=== PATIENT | male | born 1970 | race Caucasian/White ===

== ENCOUNTER → 2019-12-29 | Outpatient (CLI) | payer BC ==
[~2019-12-29] VITALS: Ht 180 cm; Wt 90.0 kg
[~2019-12-29] MED LIST: ALBU17AE3 IH; ASPI-999 PO; ATOR80TA76 PO; AZIT500T2 PO; CATHETER FLUSH 10 ML SYR IV PRN; CIPR500T4 PO; CLOP75TA28 PO; IBUP-30 PO; NYST1000 PO
--- NOTE | 2019-12-29 20:39 | STRESS TEST ---
DATE OF SERVICE: 12/29/2019 RESTING AND POST EXERCISE TECHNETIUM-99M TETROFOSMIN SPECT CT IMAGING ORDERING PHYSICIAN: Dr. Arredondo. CLINICAL DIAGNOSES: Coronary artery disease, tobacco use. Baseline images were carried out after injection of 9.78 mCi of technetium-99m Tetrofosmin. Subsequently, exercise was carried out on a treadmill. Jerman protocol was employed. Heart rate response to exercise was normal. Blood pressure response to exercise was somewhat hypertensive. No significant arrhythmia was seen. After the patient had attained more than 85% of maximum predicted heart rate, 30.5 mCi of technetium-99m Tetrofosmin were injected and the exercise was continued for another minute. The exercise was stopped on account of fatigue. She attained 96% of maximum predicted heart rate and 11.3 METS of workload. There did not appear to be significant ST segment deviation with exercise. Review of images at rest and following stress does not indicate any significant perfusion defects consistent with myocardial ischemia or infarction. Gated images show normal global left ventricular systolic function with normal regional wall motion. Left ventricular ejection fraction is calculated to be 61%. Left ventricular end diastolic volume is 81 mL. TID is absent (0.94). CONCLUSIONS: 1. No evidence of significant myocardial ischemia or infarction on this study. 2. Normal regional wall motion. 3. Normal global left ventricular systolic function with a calculated ejection fraction of 61%. 4. Somewhat hypertensive response to exercise. Job ID: [id number] DocumentID: [id number] Dictated Date: 12/29/2019 16:11:27 Foundry Molder Date: 12/29/2019 20:39:37 Dictated By: NEAL ARREDONDO MD, MA, FACP, FACC,
== END ==
LOC: CARD 11:43
PROVIDERS: ATTEND Internal Medicine Cardiovascular Disease
DX: I25.10 Atherosclerotic heart disease of native coronary artery without angina pectoris (principal); R53.83 Other fatigue; Z72.0 Tobacco use
CPT/HCPCS: 78452; 93017

== ENCOUNTER → 2021-01-03 | Outpatient (CLI) | payer BC ==
[~2021-01-03] MED LIST changes: -CATHETER FLUSH 10 ML SYR IV PRN
[2021-01-03 13:39] VITALS: BP 106/74
== END ==
LOC: CARD 13:00
PROVIDERS: ATTEND Internal Medicine Cardiovascular Disease
DX: I25.10 Atherosclerotic heart disease of native coronary artery without angina pectoris (principal); Z95.5 Presence of coronary angioplasty implant and graft
CPT/HCPCS: 93306; 93351

== ENCOUNTER → 2022-01-02 | Outpatient (CLI) | payer BC ==
[2022-01-02 09:56] VITALS: BP 118/80
== END ==
LOC: CARD 09:00
PROVIDERS: ATTEND Internal Medicine Cardiovascular Disease
DX: I25.10 Atherosclerotic heart disease of native coronary artery without angina pectoris (principal)
CPT/HCPCS: 93306; C8930

== ENCOUNTER 2022-01-09 10:00 | Day surgery (SDC) | payer BC ==
[~2022-01-09] VITALS: Ht 182.9 cm; Wt 91.6 kg
[2022-01-09] VITALS (9 sets, daily range): BP systolic 104–126; BP diastolic 67–85
[2022-01-09 08:49] LABS: HEMATOCRIT 46 % (40-54); HEMOGLOBIN 16.4 g/dL (13.3-17.7); MEAN CORPUSCULAR HEMOGLOBIN 31 pg (25-34); MEAN CORPUSCULAR HGB CONC 35 g/dL (32-36); MEAN CORPUSCULAR VOLUME 87 fL (80-99); MEAN PLATELET VOLUME 10.6 fL (9.0-12.2); PLATELET COUNT 251 10^3/uL (130-400); WHITE BLOOD COUNT 10.4 10^3/uL (4.3-11.0)
[2022-01-09 09:02] LABS: INR 0.9 (0.8-1.4); PROTHROMBIN TIME PATIENT 12.8 SEC (12.2-14.7)
[2022-01-09 09:08] LABS: ALANINE AMINOTRANSFERASE 26 U/L (0-55); ALBUMIN 4.6 GM/DL (3.2-4.5); ALKALINE PHOSPHATASE 60 U/L (40-136); BILIRUBIN,TOTAL 0.7 MG/DL (0.1-1.0); BUN/CREATININE RATIO 13; CALCIUM 9.4 MG/DL (8.5-10.1); CARBON DIOXIDE 21 MMOL/L (21-32); CHLORIDE 108 MMOL/L (98-107); CHOLESTEROL 140 MG/DL (< 200); CREATININE SERUM 0.86 MG/DL (0.60-1.30); GFR ESTIMATED 105; GLUCOSE 160 MG/DL (70-105); HDL CHOLESTEROL 38 MG/DL (40-60); POTASSIUM 4.5 MMOL/L (3.6-5.0); SODIUM 140 MMOL/L (135-145); TOTAL PROTEIN 7.3 GM/DL (6.4-8.2); TRIGLYCERIDES 91 MG/DL (<150); VLDL CHOLESTEROL 18 MG/DL (5-40)
[~2022-01-09 10:00] MED LIST changes: +ASPI-1238 PO; +ATOR40TA70 PO; +CLOP75TA69 PO; +HEParin (CATH LAB) 2,000 ML IV ONE; +LIDOCAINE 1% INJ 20 ML VIAL ONE; +MTP25TSR PO; +NS IV 1000 ML 1,000 ML IV SCH; +NS IV 1000 ML 1,000 ML ONE
[2022-01-09] MEDS ORDERED: methylPREDNISolone 125 MG (Solu-MEDROL) VIAL ONE (10:13)
[2022-01-09] MEDS ORDERED: fentaNYL INJ 100 MCG/2 ML AMP ONE (10:13)
[2022-01-09] MEDS ORDERED: MIDAZOLAM 5 MG/5 ML (VERSED) VIAL ONE (10:13)
[2022-01-09] MEDS ORDERED: diphenhydrAMINE 50 MG/ML INJ (BENADRYL) ONE (10:13)
[2022-01-09] MEDS ORDERED: ATROPINE INJECTION 1 MG/10 ML SYR (ABBOTT) ONE (10:52)
--- NOTE | 2022-01-09 11:33 | Cardiac Procedure Note-CS/ASA ---
Pre-Procedure Note Pre-Op Procedure Note H&P Reviewed The H&P was reviewed, patient examined and no changes noted. Date H&P Reviewed: Jan 09, 2022 Time H&P Reviewed: 10:30 Conscious Sedation Pre-Proced Time 10:30 ASA Score 3 For ASA 3 and 4: Consider anesthesia and medical clearance. Also, for patients with a history of failed moderate sedation consider anesthesia. Airway Lungs Heart ASA score ASA 1: a normal healthy patient ASA 2: a patient with a mild systemic disease (mid diabetes, controlled hypertension, obesity ASA 3: a patient with a severe systemic disease that limits activity (angina, COPD, prior Myocardial infarction) ASA 4: a patient with an incapacitating disease that is a constant threat to life (CHF, renal failure) ASA 5: a moribund patient not expected to survive 24 hrs. (ruptured aneurysm) ASA 6: a declared brain- patient whose organs are being harvested. For emergent operations, add the letter E after the classification Mallampati Classification Grade 2 Sedation Plan Analgesia, Amnesia, Plan communicated to team members, Discussed options with patient/fam, Discussed risks with patient/fam The patient is an appropriate candidate to undergo the planned procedure, sedation, and anesthesia. The patient immediately re-assessed prior to indication. NEAL PONCE MD FACP FAC CCDS Jan 09, 2022 11:33
--- NOTE | 2022-01-09 11:41 | Discharge Inst-Cardiology ---
Discharge Inst-Cardiac Discharge Medications Continued Medications: Aspirin (Aspirin EC) 81 Mg Tablet.dr 81 MG PO DAILY, TAB Atorvastatin Calcium (Atorvastatin Calcium) 40 Mg Tablet 40 MG PO DAILY, TAB Clopidogrel Bisulfate (Plavix) 75 Mg Tablet 75 MG PO DAILY, TAB Metoprolol Succinate (Metoprolol Succinate) 25 Mg Tab.er.24h 25 MG PO DAILY, TAB NEAL PONCE MD [facility] Jan 09, 2022 11:41
--- NOTE | 2022-01-09 11:42 | Discharge Inst-Post CATH ---
Discharge Inst-CATH/EP Post Cardiac Cath/EP D/C Inst Follow Up/Plan F/u with Dr Arredondo in 2 weeks ACTIVITY * Go Home directly and rest. * Limit activity of the leg (or wrist if it was used) for 7 days including aerobics, swimming, jogging, bicycling, etc. * Restrict stair-climbing for 7 days if possible, if not, climb up with your no n-cath leg, then bring together on the same step. * Avoid lifting, pushing, pulling or excessive movement of the affected ext remity for 7 days. * Customary sexual activity may be resumed after 2 days-use caution not to use a position that strains or causes pain to the affected extremity. * No driving for 24 hours. * NO SMOKING. * Avoid straining for bowel movements for 7 days. * Gentle walking on level ground is allowed. * Returning to work will depend on the type of procedure and the results. Your doctor will discuss this with you. CALL YOUR DOCTOR FOR ANY OF THE FOLLOWING: *If bleeding from the puncture site occurs- Apply gentle pressure to site with clean cloth and call your doctor or EMS. * If a knot or lump forms under the skin, increases in size, or causes pain. * If bruising appears to be worsening or moving further down your leg instead of disappearing. * Temperature above 101 F. CARE OF YOUR GROIN INCISION; * Bruising or purple discoloration of the skin near the puncture site is common. * You may shower only, no bathtub bathing for 5 days. Be careful to avoid slipping as your leg may feel stiff. * If a closure device was used on your femoral artery, please see the attached guide regarding care of the device and your leg. * Leave dressing on FOR 24 hours. CARE OF YOUR WRIST INCISION; * Bruising or purple discoloration of the skin near the puncture site is common. * You may shower. * DO NOT submerge wrist. * Leave dressing on FOR 24 hours. NEAL ARREDONDO MD FACP FAC CCDS Jan 09, 2022 11:42
[2022-01-09] MEDS ORDERED: NS IV 1000 ML 1,000 ML IV SCH (11:45)
[2022-01-09] MEDS ORDERED: PATIENT MAY USE OWN MEDS, ALL PO SCH (11:45)
--- NOTE | 2022-01-09 15:03 | CARDIAC CATHETERIZATION ---
DATE OF SERVICE: 01/09/2022 CARDIAC CATHETERIZATION REPORT INDICATION FOR PROCEDURE: The patient is a 51-year-old gentleman, who is known to have coronary artery disease. He has a history of coronary stenting following an acute ST elevation myocardial infarction in July 2018. A stress echo done recently was somewhat abnormal because of three beats run of nonsustained ventricular tachycardia at peak exercise. Cardiac catheterization was carried out today after having obtained an informed consent. PROCEDURE IN DETAIL: He was brought to the cardiac catheterization during the fasting state. Right groin was prepared and draped in the usual sterile fashion. Lidocaine 1% was used for local anesthesia. Modified Seldinger technique was used to advance a 5-[place] sheath in right femoral artery, 5-[place] JL4 catheter was used for left angiography, 5-[place] JR4 catheter was used for right coronary angiography, 5-[place] pigtail catheter was used for left heart catheterization and left ventricular angiography. He tolerated the procedure well. Manual pressure was used to achieve hemostasis. HEMODYNAMICS: Left ventricular end-diastolic pressure following coronary angiography was 10 mmHg. There was no significant pressure gradient on pullback across the aortic valve. Ascending aortic pressure was 101/70 with a mean of 84 mmHg. CORONARY ANGIOGRAPHY: Left main coronary artery is free of significant disease. There is a widely patent stent in the proximal left anterior descending artery that does not exhibit significant disease. The left circumflex artery does not exhibit significant disease. The right coronary artery does not exhibit significant disease. The right coronary artery is dominant. LEFT VENTRICULAR ANGIOGRAPHY: Left ventricular angiography was carried out in the right anterior oblique projection. Global left ventricular systolic function is normal. No regional wall motion abnormalities are seen in this view. Left ventricular ejection fraction is approximately 60%. CONCLUSIONS: 1. No angiographically significant disease. There is a patent stent in the proximal left anterior descending that does not exhibit any significant stenosis. 2. Normal global left ventricular systolic function with an ejection fraction approximately 60%. 3. Normal left ventricular end-diastolic pressure. Job ID: [id number] DocumentID: [id number] Dictated Date: 01/09/2022 11:26:23 Merchandising Intern Date: 01/09/2022 15:02:08 Dictated By: NEAL PONCE MD, MA, FACP, FACC,
== END 2022-01-09 15:15 | disposition home or self-care (01) ==
LOC: CATH 10:00 → SDC 12:34 → CATH 15:15
PROVIDERS: ATTEND Internal Medicine Cardiovascular Disease
DX: I25.10 Atherosclerotic heart disease of native coronary artery without angina pectoris (principal); I65.29 Occlusion and stenosis of unspecified carotid artery; I10 Essential (primary) hypertension; F17.210 Nicotine dependence, cigarettes, uncomplicated; Z79.899 Other long term (current) drug therapy
CPT/HCPCS: 80053; 80061; 85027; 85610; 85730; 87081; 93005; 93458; C1894; 36415; 36430

== ENCOUNTER 2022-10-10 05:38 | Outpatient (CLI) | payer BC ==
[~2022-10-10] VITALS: Ht 182.9 cm; Wt 93.3 kg
[~2022-10-10 05:38] MED LIST changes: +CLOP-31 PO; -CLOP75TA69 PO; -HEParin (CATH LAB) 2,000 ML IV ONE; -LIDOCAINE 1% INJ 20 ML VIAL ONE; -NS IV 1000 ML 1,000 ML IV SCH; -NS IV 1000 ML 1,000 ML ONE
== END 2022-10-15 13:03 | disposition home or self-care (01) ==
LOC: PREOP 05:38
PROVIDERS: ATTEND Surgery
DX: Z01.818 Encounter for other preprocedural examination (principal)

== ENCOUNTER 2022-10-23 10:12 | Day surgery (SDC) | payer BC ==
[~2022-10-23] VITALS: Ht 182.9 cm; Wt 93.3 kg
[2022-10-23] MEDS ORDERED: LACTATED RINGERS 1,000 ML IV STA (10:13)
[2022-10-23] MEDS ORDERED: HURRICAINE EXT TUBE (BENZOCAINE) XX PRN (10:15)
[2022-10-23 10:40] VITALS: BP 123/89
[2022-10-23] MEDS ORDERED: PROPOFOL INJECTION 50 ML IV ONE ×2 (11:38→11:57)
--- NOTE | 2022-10-23 12:06 | Progress Note-Post Operative ---
Post-Operative Progess Note Surgeon (s)/Molder Trimmer (s) Surgeon MANDI LAWSON DO Molder Trimmer: n/a Pre-Operative Diagnosis screening colon cancer, dysphagia Post-Operative Diagnosis distal esophageal narrowing Procedure & Operative Findings Date of Procedure 10/23/22 Procedure Performed/Findings flexible sigmoidoscopy, EGD with biopsies Anesthesia Type per computer hardware designer Estimated Blood Loss Estimated blood loss (mL): none Specimens/Packing Specimens Removed biopsies ge junction and antrum MANDI LAWSON DO Oct 23, 2022 12:06
[2022-10-23] MEDS ORDERED: SUCR1TAB36 PO (12:07)
[2022-10-23] MEDS ORDERED: PANT40TA2 PO (12:07)
--- NOTE | 2022-10-23 12:08 | Discharge Inst-Simple/Standard ---
Discharge Inst-Standard Reconcile Patient Problems Problems Reviewed?: Yes Discharge Medications New, Converted or Re-Newed RX: Transmitted to Pharmacy Patient Instructions/Follow Up Plan of Care/Instructions/FU: Follow up [address] CT a/p with rectal contrast to evaluate rest of colon Activity as Tolerated: Yes Discharge Diet: No Restrictions, Regular Diet MANDI LUCAS DO Oct 23, 2022 12:08
--- NOTE | 2022-10-23 12:08 | Anesthesia-General Post-Op ---
MAC Patient Condition Mental Status/LOC: Same as Preop Cardiovascular: Satisfactory Nausea/Vomiting: Absent Respiratory: Satisfactory Pain: Controlled Complications: Absent Post Op Complications Complications None Follow Up Care/Instructions Patient Instructions None needed. Anesthesiology Discharge Order Discharge Order Patient is doing well, no complaints, stable vital signs, no apparent adverse anesthesia problems. No complications reported per nursing. TRUNG DOYLE CRNA Oct 23, 2022 12:08
[2022-10-23 12:10] VITALS: BP 119/71
[2022-10-23 12:15] VITALS: BP 122/80
[2022-10-23 12:20] VITALS: BP 125/88
[2022-10-23 12:25] VITALS: BP 118/88
[2022-10-23 12:59] LABS: ALBUMIN 4.4 GM/DL (3.2-4.5); BILIRUBIN,TOTAL 0.8 MG/DL (0.1-1.0); CALCIUM 9.4 MG/DL (8.5-10.1); CREATININE SERUM 0.94 MG/DL (0.60-1.30); TOTAL PROTEIN 7.1 GM/DL (6.4-8.2)
[2022-10-23 14:21] VITALS: BP 118/88
--- NOTE | 2022-10-23 14:21 | Diagnostic Imaging Report ---
PROCEDURE: CT abdomen and pelvis without contrast. TECHNIQUE: Multiple contiguous axial images were obtained through the abdomen and pelvis without the use of intravenous contrast. Rectal contrast was administered and imaging was obtained in both the prone and supine position. Auto Exposure Controls were utilized during the CT exam to meet ALARA standards for radiation dose reduction. INDICATION: 51-year-old female, incomplete colonoscopy. CORRELATION: None. FINDINGS: Lung bases are clear with heart size normal. The unenhanced liver, gallbladder, spleen, pancreas, adrenal glands demonstrate no acute findings. Right kidney is slightly malrotated. Kidneys are otherwise unremarkable. No hydronephrosis. There is bskf-to-aieyrgxj wall calcification of the abdominal aorta. There is noted the superior mesenteric artery appearing to be positioned to the right of the superior mesenteric vein. It is noted majority of the small bowel in the right abdomen with the colon in the left abdomen, compatible with malrotation. There is distention of the colon with contrast and gas. There is reflux of contrast into the distal small bowel. There is a very small filling defect in the proximal colon, however this appears gravity dependent, likely reflective of small amount of stool. A definitive mass or large polyp does not appear to be suggested. Appendix is visualized and unremarkable. No abdominal ascites and/or free air. Urinary bladder is unremarkable. Visualized osseous structures demonstrate no acute findings. IMPRESSION: 1. No definitive colonic obstructing lesion. No large polyp or mass-like appearance. 2. There is noted intestinal malrotation. Dictated by: Dictated on workstation # [id number]
--- NOTE | 2022-10-23 21:41 | OPERATIVE REPORT ---
DATE OF SERVICE: 10/23/2022 PREOPERATIVE DIAGNOSES: Screening colonoscopy and dysphagia. POSTOPERATIVE DIAGNOSES: Distal esophageal narrowing and incomplete colonoscopy. PROCEDURES: EGD with biopsies, flexible sigmoidoscopy. SURGEON: Mandi Lucas DO ANESTHESIA: Per SHEARER OPERATOR. ESTIMATED BLOOD LOSS: None. COMPLICATIONS: None. INDICATIONS: The patient is a 51-year-old male with need for screening colonoscopy. He also has dysphagia symptoms. He understands risks and benefits of procedure and wished to proceed. Consent was signed in chart. DESCRIPTION OF PROCEDURE: The patient was taken to endoscopy suite, placed in left lateral recumbent position. Timeout was performed. Scope was inserted in the mouth, down the esophagus, stomach, duodenum without difficulty. No polyps, masses or ulcerations within the duodenum. Scope was then slowly retracted back into the stomach, which had no polyps, masses or ulcerations. Biopsy of the antrum was obtained. Scope was retroflexed noting appearance of a little bit of narrowing. Scope was returned to its normal position, slowly withdrawn to distal esophagus. Distal esophagus had some narrowing, but also with manipulation of the scope, small little superficial tears evident from the stricture. Biopsy of this area was obtained. Scope was then slowly retracted back until completely removed, noting no other pathology. A biopsy of the GE junction had been obtained at the narrowing. Digital rectal exam was performed. No palpable polyps, masses or ulcerations. Scope was inserted in the rectum, advanced into the sigmoid colon. The patient will be repositioned multiple times in order to try to advance the scope along with other techniques to get the scope to advance where the scope was unable to get it to be advanced. It was determined to discontinue this scope and use imaging for further evaluation there, so it would not cause any harm. The scope was then slowly retracted back. There were no polyps, masses or ulcerations visualized in the sigmoid or in the rectum. Scope was slowly retracted back until completely removed. The scope was retroflexed noting no other pathology. Scope was returned to its normal position, slowly withdrawn until completely removed. The patient tolerated the procedure well without any complications, taken to recovery room in stable condition. RECOMMENDATIONS: The patient will get a CT scan of the abdomen and pelvis with [ ] contrast for further evaluation of the colon. We will start him on Protonix and Carafate. He will follow up in 2 weeks. If continues to have symptoms, we will likely need dilatation, which we will arrange to be done in approximately 8 weeks if needed. He will need repeat colonoscopy in 5-[address]. Job ID: [id number] DocumentID: [id number] Dictated Date: 10/23/2022 14:07:13 Calcine Furnace Tender Date: 10/23/2022 21:39:00 Dictated By: MANDI LUCAS DO
== END 2022-10-23 14:21 | disposition home or self-care (01) ==
LOC: ENDO 10:12
PROVIDERS: ATTEND Surgery
DX: Z12.11 Encounter for screening for malignant neoplasm of colon (principal); K22.2 Esophageal obstruction; F17.210 Nicotine dependence, cigarettes, uncomplicated; Z28.310 Unvaccinated for COVID-19
CPT/HCPCS: 36415; 74176; 80053; 88305